=== PATIENT | female | born 1985 | race Caucasian/White ===

== ENCOUNTER 2018-04-30 15:31 | Inpatient (IN) | payer OTHER ==
[2018-04-30] MEDS ORDERED: RINGERS SOLUTION,LACTATED 1,000 ML IV PRN (18:22)
[2018-04-30] MEDS ORDERED: RINGERS SOLUTION,LACTATED 1,000 ML IV ONE (18:22)
[2018-04-30 18:37] LABS: AMORPHOUS SEDIMENT,URINE TRACE /HPF; APPEARANCE,URINE TURBID; BILIRUBIN,URINE NEGATIVE (NEGATIVE); GLUCOSE, URINE 50 mg/dL (NEGATIVE); KETONES,URINE NEGATIVE (NEGATIVE); LEUKOCYTE ESTERASE,URINE LARGE (NEGATIVE); NITRITE,URINE NEGATIVE (NEGATIVE); PROTEIN,URINE 30 mg/dL (NEGATIVE); URINE SPECIFIC GRAVITY 1.023
[2018-04-30 18:38] LABS: COLOR,URINE YELLOW
[2018-04-30 18:53] LABS: URINE AMPHETAMINES SCREEN NEGATIVE; URINE BARBITURATES SCREEN NEGATIVE; URINE BENZODIAZEPINES SCREEN NEGATIVE; URINE COCAINE SCREEN NEGATIVE; URINE MARIJUANA (THC) SCREEN NEGATIVE; URINE METHADONE SCREEN NEGATIVE; URINE PHENCYCLIDINE SCREEN NEGATIVE
--- NOTE | 2018-04-30 18:53 | Admission Physical ---
Datetime Report Generated by CPN: 04/30/2018 18:52 CURRENT ADMISSION Chief Complaint: Uterine Contractions Indication for Induction: Gestational HTN; Maternal Diabetes Admit Impression : Term, Intrauterine ; No Active Labor; Intact Membranes; Induction of Labor; Admit Plan: Admit to Unit; Initiate Labor Induction Protocol; Initiate Protocol ALLERGIES Medication Allergies: No Medication Allergies: No Known Allergies (04/30/2018) Latex: No Latex Allergies Food Allergies: none Environmental Allergies: none OBSTETRICAL HISTORY EDC: 05/04/2018 00:00 : 3 Para: 2 Term: 0 : 2 SAB: 0 IAB: 0 Livin Cesareans: 1 VBACs: 1 Gestational Diabetes: Yes Rh Sensitization: No Incompetent Cervix: No BEAN: No Infertility: No ART Treatment: No Uterine Anomaly: No IUGR: No Hx Previous C/S: Yes Macrosomia: No Hx Loss/Stillborn: No PIH: Yes Hx : No Placenta Previa/Abruption: No Depression/PP Depression: No PTL/PROM: Yes Post Hemorrhage: No Current Procedures: Ultrasound; NST Obstetrical History Comments: [id number] Pre-E 28week C/s G2- 2009 G3- current GDM SEE RECORDS Alcohol: No Marijuana : No Cocaine: No Other Illicit Drugs: No Cigarettes: Former Smoker. [id number] MEDICAL HISTORY Diabetes: Yes Diabetes Type: Gestational Diabetes Blood Transfusion: No Pulmonary Disease (Asthma, TB): No Breast Disease: No Hypertension: No Head Greenskeeper Surgery: No Heart Disease: No Hosp/Surgery: Yes Autoimmune Disorder: Yes Anesthetic Complications: No Kidney Disease: No Abnormal Pap Smear: No Neuro/Epilepsy: No Psychiatric Disorders: No Other Medical Diseases: No Hepatitis/Liver Disease: No Significant Family History: No Varicosities/Phlebitis: No Trauma/Violence : No Thyroid Dysfunction: No Medical History Comments: Psoriasis, childbirth, c/s INFECTIOUS HISTORY Gonorrhea: No Genital Herpes: No Chlamydia: No Tuberculosis: No Syphilis: No Hepatitis: No HIV/AIDS Exposure: No Rash or Viral Illness: No HPV: No PHYSICAL EXAM General: Normal HEENT: Normal Neurologic: Normal Thyroid: Deferred Heart: Normal Lungs: Normal Breast: Deferred Back: Normal Abdomen: Normal Genitourinary Exam: Normal Extremities: Normal DTRs: Normal Pelvic Type: Adequate Vital Signs: Reviewed VAGINAL EXAM Dilatation: 1 Effacement: 30 Station: 2 Contraction Comments: irreg MEMBRANES Membranes: Intact FETUS A EGA: 39.3 Monitoring: External US FHR- Baseline: 125 Variability: Moderate 6-25bpm Accelerations: 15X15 Decelerations: None FHR Category: Category I Estimated Weight (gm): 4155 Presentation: Vertex Admit Comment: 32yo at 39+3ega presents for IOL due to GDM/GHTN. h/o c/s at 28wks - emergent due to PreE. THen Successful - 2009 at 36wks - no care, did not known she was . c/b Obesity - anesthesia consult done. Nl Sallie and Nl Echo at [facility]. Psoriasis. needs sleep study per [facility]. GDM - diet controlled. EFW 4155g (9#3oz) - done on 04/23. GBS negative. Seen in the office with strip noted decels and tachy. Cat I NST upon arrival here. Will admit and plan IOL due to TOLAC - reviewed only able to use pitocin and FB for IOL. PLANS FOR LABOR AND DELIVERY Labor and Delivery: None Pain Management: Epidural Feeding Preference: Formula Benefit of Breast Feed Discussed: Yes Circumcision: Yes INFORMED CONSENT Informed Consent Obtained: Vaginal Delivery; Induction of Labor; Vaginal After ; Risks, Benefits and Alternatives Discussed Signature: with User ID: [email or web address]
[2018-04-30 19:41] LABS: ABSOLUTE LYMPHOCYTES (AUTO) 1.5 10^3/uL (0.5-4.7); ABSOLUTE MONOCYTES (AUTO) 0.3 10^3/uL (0.1-1.4); ABSOLUTE NEUT (AUTO) 4.4 10^3/uL (1.7-8.2); BASOPHILS % (AUTO) 0.4 % (0-2); EOSINOPHILS % (AUTO) 0.6 % (0-6); HEMATOCRIT 31.7 % (36.0-47.0); HEMOGLOBIN 10.8 g/dL (12.0-15.5); LYMPHOCYTES % (AUTO) 24.3 % (13-45); MEAN CORPUSCULAR HEMOGLOBIN 29.9 pg (27.0-33.4); MEAN CORPUSCULAR HGB CONC 34.1 g/dL (32.0-36.0); MEAN CORPUSCULAR VOLUME 88 fl (80-97); MONOCYTES % (AUTO) 4.7 % (3-13); PLATELET COUNT 240 10^3/uL (150-450); RED BLOOD COUNT 3.62 10^6/uL (3.72-5.28); RED CELL DISTRIBUTION WIDTH 15.3 % (11.5-14.0); TOTAL CELLS COUNTED % (AUTO) 100 %; WHITE BLOOD COUNT 6.3 10^3/uL (4.0-10.5)
[2018-04-30] MEDS ORDERED: NORMAL SALINE 250 ML IV PRN (19:47)
[2018-04-30] MEDS ORDERED: OXYTOCIN/NORMAL SALINE 20 UNIT/1,000 ML RTUINJ IV PRN (21:44)
[2018-04-30] MEDS ORDERED: NALBUPHINE HCL INJ 10 MG/1 ML AMPULE ONE (21:45)
[2018-04-30] MEDS ORDERED: NALBUPHINE HCL INJ 10 MG/1 ML AMPULE INJ ONE (21:45)
[2018-04-30] MEDS ORDERED: ONDANSETRON HCL INJ/PF 4 MG/2 ML SDV IV PRN (21:45)
[2018-05-01] MEDS ORDERED: OXYTOCIN/NORMAL SALINE 20 UNIT/1,000 ML RTUINJ ONE ×2 (00:07→06:32)
[2018-05-01] MEDS ORDERED: FENTANYL/BUPIVACAINE/NS/PF 300 MCG/150 ML RTUINJ EPI ONE ×2 (05:04→13:57)
[2018-05-01] MEDS ORDERED: BUPIVACAINE HCL 0.25 % INJ/PF (2.5 MG/1 ML) 30 ML VIAL ONE (05:04)
[2018-05-01] MEDS ORDERED: EPHEDRINE SULFATE INJ 50 MG/1 ML AMPULE ONE (05:04)
[2018-05-01] MEDS ORDERED: LIDOCAINE 1.5%/EPINEPHRINE INJ-PF 30 ML SDV ONE (05:14)
[2018-05-01] MEDS ORDERED: MISOPROSTOL 0.2 MG TABLET ONE (06:32)
[2018-05-01] MEDS ORDERED: LIDOCAINE 1% INJ-PF (10 MG/ML) 30 ML SDV ONE (06:32)
[2018-05-01] MEDS ORDERED: ONDANSETRON HCL INJ/PF 4 MG/2 ML SDV ONE (06:52)
--- NOTE | 2018-05-01 07:11 | L&D Progress Notes ---
PROGRESS NOTES Datetime Report Generated by CPN: 05/01/2018 07:10 PROGRESS NOTE Impression: Normal Progression of Labor Procedures: Artificial ROM; Sterile Vag Exam Plan: Continue Present Management; Induction Informed Consent Obtained: Vaginal Delivery; Induction of Labor; Risks, Benefits and Alternatives Discussed Informed Consent Obtained: Vaginal Delivery; Induction of Labor; Vaginal After ; Risks, Benefits and Alternatives Discussed Vital Signs : Reviewed; Within Normal Limits Comment: COnt with IOL. TOLAC. AROM with clear fluid. Reviewed with patient that baby is approx 2# bigger than her prior vaginal delivery and may require c/s due to CPD however will continue with IOL now. Will continue to monitor labor curve. VAGINAL EXAM Dilatation: 1 Effacement: 30 Station: 2 Contractions: irreg MEMBRANES Membranes: Ruptured Membranes: Intact FETUS A FHR - Baseline: 135 Monitoring: External US Variability: Moderate 6-25bpm Accelerations: 15X15 Decelerations: None FHR Category: Category I Estimated Weight (gm): 4155 Presentation: Vertex SIGNATURE SIGNATURE: [id number] SIGNATURE: [id number] Signature: with User ID: [email or web address]
[2018-05-01] MEDS ORDERED: LIDOCAINE 2%/EPINEPHRINE INJ 20 ML VIAL ONE (13:54)
[2018-05-01] MEDS ORDERED: ACETAMINOPHEN 650 MG SUPP.RECT PR PRN (18:39)
[2018-05-01] MEDS ORDERED: PROMETHAZINE HCL 25 MG TABLET PO PRN (18:39)
[2018-05-01] MEDS ORDERED: PROMETHAZINE HCL 25 MG SUPP.RECT PR PRN (18:39)
[2018-05-01] MEDS ORDERED: DIPHENHYDRAMINE HCL 25 MG CAPSULE PO PRN (18:39)
[2018-05-01] MEDS ORDERED: NA PHOS,M-B/NA PHOS,DI-BA (ADULT) 133 ML ENEMA PR PRN (18:39)
[2018-05-01] MEDS ORDERED: DIPH/PERTUSS(ACELL)/TETANUS VAC/PF 0.5 ML SYR (>=10YO) IM PRN (18:39)
[2018-05-01] MEDS ORDERED: PROMETHAZINE HCL INJ 25 MG/1 ML VIAL IV PRN (18:39)
[2018-05-01] MEDS ORDERED: DIBUCAINE 1% OINTMENT 28 GM TP PRN (18:39)
[2018-05-01] MEDS ORDERED: MAGNESIUM HYDROXIDE SUSP 30 ML UDCUP PO PRN (18:39)
[2018-05-01] MEDS ORDERED: MEASLES,MUMPS&RUBELLA VACC/PF 0.5 ML VIAL SUBCUT PRN (18:39)
[2018-05-01] MEDS ORDERED: GLYCERIN/WITCH HAZEL LEAF 1 EACH MED..PAD TP PRN (18:39)
[2018-05-01] MEDS ORDERED: PSEUDOEPHEDRINE HCL 30 MG TABLET PO PRN (18:39)
[2018-05-01] MEDS ORDERED: ZOLPIDEM TARTRATE 5 MG TABLET PO PRN (18:39)
[2018-05-01] MEDS ORDERED: ACETAMINOPHEN WITH CODEINE #3 TABLET PO PRN ×2 (18:39)
[2018-05-01] MEDS ORDERED: OXYTOCIN/NORMAL SALINE 20 UNIT/1,000 ML RTUINJ IV PRN (18:39)
[2018-05-01] MEDS ORDERED: BENZOCAINE/MENTHOL AEROSOL SPRAY 56 ML TOP PRN (18:39)
[2018-05-01] MEDS ORDERED: IBUPROFEN 800 MG TABLET ONE (19:45)
[2018-05-01] MEDS: IBUPROFEN 800 MG TABLET PO SCH (19:47)
[2018-05-01] MEDS: FAMOTIDINE 20 MG TABLET PO SCH (22:04)
[2018-05-02] MEDS: IBUPROFEN 800 MG TABLET PO SCH ×3 (06:16→22:07)
[2018-05-02 07:43] LABS: HEMATOCRIT 30.4 % (36.0-47.0); MEAN CORPUSCULAR HEMOGLOBIN 29.1 pg (27.0-33.4); MEAN CORPUSCULAR HGB CONC 32.8 g/dL (32.0-36.0); MEAN CORPUSCULAR VOLUME 89 fl (80-97); PLATELET COUNT 194 10^3/uL (150-450); RED BLOOD COUNT 3.44 10^6/uL (3.72-5.28); RED CELL DISTRIBUTION WIDTH 15.3 % (11.5-14.0)
[2018-05-02] MEDS: FAMOTIDINE 20 MG TABLET PO SCH ×2 (10:24→22:07)
[2018-05-02] MEDS: FERROUS SULFATE 325 MG TABLET PO SCH ×2 (10:24→17:31)
[2018-05-02] MEDS: SENNOSIDES/DOCUSATE 8.6-50 MG 1 EACH TABLET PO SCH (10:24)
[2018-05-02] MEDS: PRENATAL VITAMIN W DHA CAPSULE PO SCH (10:24)
[2018-05-02] MEDS: DOCUSATE SODIUM 100 MG CAPSULE PO SCH ×2 (10:25→17:31)
--- NOTE | 2018-05-02 11:20 | PDOC PROGRESS REPORT ---
Subjective-OB Progress Note for:: 05/02/18 Subjective: Pt doing well, ambulatory. She reports light bleeding, voiding without difficulty. No concerns today. Physical Exam (OB) Vital Signs: Temp Pulse Resp BP Pulse Ox 97.8 F 82 18 117/65 100 05/02/18 07:40 05/02/18 07:40 05/02/18 07:40 05/02/18 07:40 05/02/18 07:40 Intake & Output 05/01/18 05/02/18 05/03/18 06:59 06:59 06:59 Intake Total 1000 360 Balance 1000 360 Weight 114 kg - Abdomen Description: Soft Hernia Present: No Fundal Description: Firm, Midline Fundal Height: u/u - u/2 Objective-Diagnostic Laboratory: 05/02/18 06:25 05/02/18 06:25 WBC 11.0 H RBC 3.44 L Hgb 10.0 L Hct 30.4 L MCV 89 MCH 29.1 MCHC 32.8 RDW 15.3 H Plt Count 194 Assessment and Plan(PN) - Assessment and Plan (1) Gestational diabetes mellitus (GDM) in childbirth, diet controlled Is this a current diagnosis for this admission?: Yes (2) History of section complicating Is this a current diagnosis for this admission?: Yes - Time Spent with Patient Medications reviewed and adjusted accordingly: Yes - Disposition Within: within 24 hours
[2018-05-03] MEDS: IBUPROFEN 800 MG TABLET PO SCH (05:48)
--- NOTE | 2018-05-03 08:58 | PDOC DISCHARGE SUMMARY ---
Final Diagnosis Discharge Date: 05/03/18 Discharge Data - Discharge Medication Prescriptions: Ibuprofen [Motrin 800 mg Tablet] 800 mg PO Q8 #90 tablet Home Medications: Vit/Iron Fum/Folic AC [ Tablet] 1 each PO DAILY 04/30/18 Ibuprofen [Motrin 800 mg Tablet] 800 mg PO Q8 #90 tablet 05/03/18 Reason(s) for Admission: Induction of Labor, , Gestional Diabetes Intrapartum Procedure(s): Spontaneous Vaginal Delivery - Diagnosis Test Laboratory: Temp Pulse Resp BP Pulse Ox 98.0 F 71 16 124/74 98 05/03/18 07:27 05/03/18 07:27 05/03/18 07:27 05/03/18 07:27 05/03/18 07:27 04/30/18 04/30/18 05/02/18 16:15 19:12 06:25 RBC 3.62 L 3.44 L Hgb 10.8 L 10.0 L Hct 31.7 L 30.4 L Urine Opiates Screen NEGATIVE - Discharge information/Instructions Discharge Activity: Activity As Tolerated, Balance Activity w/Rest, No Lifting/ Push/Pulling, Pelvic Rest, Slowly Increase Activity, No tub bath, Walk Frequently Discharge Diet: Regular Disposition: HOME, SELF-CARE Follow up with: [facility] in: 3
[2018-05-03] MEDS: SENNOSIDES/DOCUSATE 8.6-50 MG 1 EACH TABLET PO SCH (10:13)
[2018-05-03] MEDS: DOCUSATE SODIUM 100 MG CAPSULE PO SCH (10:13)
[2018-05-03] MEDS: FAMOTIDINE 20 MG TABLET PO SCH (10:13)
[2018-05-03] MEDS: FERROUS SULFATE 325 MG TABLET PO SCH (10:13)
[2018-05-03] MEDS: PRENATAL VITAMIN W DHA CAPSULE PO SCH (10:13)
[2018-05-03 11:19] VITALS: BP 128/69
--- NOTE | 2018-05-09 08:46 | Delivery Summary ---
Del Sum A-C Datetime Report Generated by CPN: 05/09/2018 08:46 DELIVERY PERSONNEL DELIVERY PERSONNEL: [id number] Delivery Doctor:: Elly Ramsey MD Labor and Delivery Nurse:: Maday Fleming citrix systems administrator Nurse:: Sharla Handy RNC Plant Operations Coordinator/SOUND RECORDIST: Erin Oliveira, ST Plant Operations Coordinator/SOUND RECORDIST: Franny Deems, SERVICE COORDINATOR MATERNAL INFORMATION Delivery Anesthesia: Epidural Medications After Delivery: Pitocin Bolus-Please Comment Estimated Blood Loss (ml): 200 Maternal Complications: None LABOR SUMMARY EDC: 05/04/2018 00:00 No. Babies in Womb: 1 Attempted: Yes Labor Anesthesia: Epidural LABOR INFORMATION Reason for Induction: Maternal Diabetes Onset of Labor: 05/01/2018 07:00 Complete Dilatation: 05/01/2018 16:14 Cervical Ripening Agents: Soria Balloon Oxytocin: Induction Group B Beta Strep: negative Steroids Given: None Reason Steroids Not Administered: Not Applicable MEMBRANES Membranes Rupture Method: Artificial Rupture of Membranes: 05/01/2018 06:45 Length of Rupture (hr): 11.23 Amniotic Fluid Color: Clear Amniotic Fluid Color: Clear Amniotic Fluid Amount: Moderate Amniotic Fluid Odor: Normal STAGES OF LABOR Stage 1 hr: 9 Stage 1 min: 14 Stage 2 hr: 1 Stage 2 min: 45 Stage 3 hr: 0 Stage 3 min: 3 Total Time in Labor hr: 11 Total Time in Labor min: 2 VAGINAL DELIVERY Episiotomy: None Laceration #1: Vaginal Laceration Extension #1: Second Degree Laceration Repair: Yes Laceration Repair Note: 2-0 chromic repair in normal fashion Sponge Count Correct: N/A Sharps Count Correct: N/A CSECTION DELIVERY Primary Indication: N/A Secondary Indication: N/A CSection Incidence: N/A Labor: N/A Elective: N/A CSection Incision: N/A BABY A INFORMATION Infant Delivery Date/Time: 05/01/2018 17:59 Method of Delivery: Vaginal Method of Delivery: Vaginal Born in Route : No : Successful Forceps: N/A Vacuum Extraction: N/A Shoulder Dystocia : No PRESENTATION/POSITION BABY A Presentation: Cephalic Cephalic Presentation: Vertex Vertex Position: Right Occipital Anterior Breech Presentation: N/A PLACENTA INFORMATION BABY A Placenta Delivery Time : 05/01/2018 18:02 Placenta Method of Delivery: Spontaneous Placenta Status: Delivered SCORES BABY A Heart Rate 1 min: >100 bpm Resp Effort 1 min: Good Cry Reflex Irritability 1 min: Cough or Sneeze or Pulls Away Muscle Tone 1 min: Active Motion Color 1 min: Body [place], Extremities Blue Resuscitation Effort 1 min: Tactile Stimulation SCORE 1 MIN: 9 Heart Rate 5 min: >100 bpm Resp Effort 5 min: Good Cry Reflex Irritability 5 min: Cough or Sneeze or Pulls Away Muscle Tone 5 min: Active Motion Color 5 min: Body [place], Extremities Blue Resuscitation Effort 5 min: Tactile Stimulation SCORE 5 MIN: 9 INFANT INFORMATION BABY A Gestational Age at Delivery: 39.4 Gestational Status: Full Term- 39- 40.6 Weeks Outcome : Liveborn Condition : Stable Infant Sex: Male Sex: Male IDENTIFICATION BABY A Verification Date/Time: 05/01/2018 18:16 ID Band Number: [id number] Mother's Name Verified: Yes RN Verifying : JaleesaMalka Ramsey, RN, DMalka Handy, RN WEIGHT/LENGTH BABY A Birthweight (gm): 4080 Infant Weight (lb): 9 Weight (oz): 0 Infant Length (in): 21.00 Length (cm): 53.34 CORD INFORMATION BABY A No. Cord Vessels: 3 Nuchal Cord : N/A Cord Blood Taken: Yes-For Storage (Mom's Blood type +) Infant Suction: Mouth; Nose ASSESSMENT BABY A Skin to Skin: Yes SIGNATURES Signature: with User ID: [email or web address]
== END 2018-05-03 14:06 | disposition home or self-care (01) | DRG 775 ==
LOC: LC 15:31 → LR 18:08 → 2N 05-01 20:24
PROVIDERS: ADMIT Student in an Organized Health Care Education/Training Program; ATTEND Obstetrics & Gynecology
PROC: 10E0XZZ Delivery of Products of Conception, External Approach (ICD-10-PCS; principal; 2018-05-01)
PROC: 0KQM0ZZ Repair Perineum Muscle, Open Approach (ICD-10-PCS; 2018-05-01)
DX: O13.4 Gestational [pregnancy-induced] hypertension without significant proteinuria, complicating childbirth (principal); Z68.41 Body mass index [BMI] 40.0-44.9, adult; O34.211 Maternal care for low transverse scar from previous cesarean delivery; O24.420 Gestational diabetes mellitus in childbirth, diet controlled; O99.214 Obesity complicating childbirth; O70.1 Second degree perineal laceration during delivery; E66.8 Other obesity; N85.8 Other specified noninflammatory disorders of uterus; Z3A.39 39 weeks gestation of pregnancy; Z37.0 Single live birth
CPT/HCPCS: 36415; 80307; 81001; 82962; 85025; 85027; 86592; 86850; 86900; 86901; 86920; 94760; C1726; J2300; J2405; J2590; J3010; J3490